=== PATIENT | female | born 1935 | race Caucasian/White ===

== ENCOUNTER 2023-05-26 16:25 | Emergency (ER) | payer MEDICARE ==
[~2023-05-26] VITALS: Ht 162.6 cm; Wt 71.7 kg
[2023-05-26] MEDS ORDERED: EZET10TA32 PO (16:47)
[2023-05-26] MEDS ORDERED: OXYB5TAB16 PO (16:47)
[2023-05-26] MEDS ORDERED: FAMO20TA8 PO (16:47)
[2023-05-26] MEDS ORDERED: SACU1TAB PO (16:47)
[2023-05-26] MEDS ORDERED: CARV3.122 PO (16:47)
[2023-05-26] MEDS ORDERED: ATOR40TA (16:47)
[2023-05-26] MEDS ORDERED: CLOP75TA33 PO (16:47)
[2023-05-26] MEDS ORDERED: GLYB5TAB7 PO (16:47)
[2023-05-26] MEDS ORDERED: CLIN300C12 PO (17:25)
[2023-05-26] MEDS ORDERED: VANCOMYCIN IV 200 ML ONE (17:52)
[2023-05-26] MEDS ORDERED: TDAP DIPH,PERTUSS,TET VAC/PF 0.5 ML DISP.SYRIN IM ONE ×2 (18:22→18:30)
[2023-05-26] MEDS ORDERED: VANCOMYCIN IV 1,000 MG in IV DEXTROSE 5% 250 ML IV ONE (18:45)
[2023-05-26 19:17] VITALS: BP 122/58; O2SAT 97
== END 2023-05-26 19:18 | disposition home or self-care (01) ==
LOC: ER 16:25
DX: L03.012 Cellulitis of left finger (principal); E11.9 Type 2 diabetes mellitus without complications; Z79.2 Long term (current) use of antibiotics; Z79.899 Other long term (current) drug therapy
CPT/HCPCS: 99284; 96365; 90715; 90471; J3370; A4663